=== PATIENT | female | born 1980 | race Caucasian/White ===

== ENCOUNTER 2021-10-27 10:06 | Day surgery (SDC) | payer OTHER ==
[2021-10-27] MEDS ORDERED: PREVIFEM 35 MCG1 TA2 PO (10:55)
[2021-10-27] MEDS ORDERED: MOTRIN 200200 MG/TAB PO (10:56)
[2021-10-27] MEDS ORDERED: TYLENOL 500MG500 MG PO (10:57)
[2021-10-27 12:50] VITALS: BP 128/74; PULSE 71; TEMP 97.1
--- NOTE | 2021-10-27 12:50 | NUR ---
pt to [facility] via cart from [facility], walked to chair, in room. call light in reach. takes water. no c/o
[2021-10-27 13:05] VITALS: BP 115/53; PULSE 63
--- NOTE | 2021-10-27 13:15 | NUR ---
Dr menjivar talked with pt and on procedure and results.
[2021-10-27 13:20] VITALS: BP 114/82; PULSE 63
--- NOTE | 2021-10-27 13:50 | NUR ---
iv d'cd intact. Reviewed discharge inst. with pt on both produres, precautions and followup with verbal understanding. pt up in room dressed, to b/r then discharged via w/c to car with
== END 2021-10-27 14:03 | disposition home or self-care (01) ==
LOC: SDCO 10:06
DX: K29.50 Unspecified chronic gastritis without bleeding (principal); K62.89 Other specified diseases of anus and rectum; K92.1 Melena; R19.8 Other specified symptoms and signs involving the digestive system and abdomen; K64.4 Residual hemorrhoidal skin tags; F32.A Depression, unspecified; F41.9 Anxiety disorder, unspecified; Z79.899 Other long term (current) drug therapy; Z83.71 Family history of colonic polyps
CPT/HCPCS: J2704; J7120